=== PATIENT | female | born 1960 | race Caucasian/White ===

== ENCOUNTER 2023-07-18 16:02 | Outpatient (AMB) | payer OTHER, SELFPAY ==
--- NOTE | 2023-07-18 16:11 | MHC.OFFWIV ---
Intake Vital Signs 07/18/23 16:12 Height 5 ft 2 in Weight 109 lb BMI 19.9 BP 130/70 Blood Pressure Location Rt brachial Position Sitting Pulse 98 Pulse Source Pulse Oximeter Temp 99.5 F Temp Source Oral Pulse Oximetry (%) 93 Oxygen Delivery Method Room Air Intake Visit Reasons: [employer] Chills, pain side of neck Intake Note: Pt is here today c/o chills and pain Lt side of nexk pain since last night Allergies No Known Allergies Allergy (Verified 07/18/23 16:13) HPI HPI Comments History of Present Illness Details 63-year-old female presents today complaining of fever shaking chills sore throat left ear pain and left-sided neck pain which is anterior cervical lymphadenopathy. She denies shortness of breath cough congestion or chest pain. Had very difficult night sleeping due to myalgias Review of Systems Const All systems reviewed & are unremarkable except as noted in HPI and below Physical Exam Vital Signs: Last Vital Signs Temp 99.5 F 07/18/23 16:12 Pulse 98 07/18/23 16:12 BP 130/70 07/18/23 16:12 Pulse Ox 93 07/18/23 16:12 Oxygen Delivery Method Room Air 07/18/23 16:12 BMI result Body Mass Index 19.9 Const General: ill appearing HEENT Head: Yes normal to inspection, Yes normocephalic and Yes atraumatic Ears: hearing grossly normal bilaterally, external ears normal and TM's normal bilaterally General nose exam: Normal external nose present Face and sinus: Yes normal facial exam Throat: Yes posterior oropharynx abnormal (Posterior pharynx erythemic), Yes uvular edema and Yes other Eyes Conjunctivae: conjunctival abnormal (Injection bilaterally) Resp Auscultation: clear to auscultation bilaterally Cardio Rate: regular rate Rhythm: regular rhythm Heart sounds: S1 normal heart sound present and S2 normal heart sound present Results AMB Rapid Strep AMB Rapid Strep Negative Last Edit by Marti Cote CMA on 07/18/23 16:33 Results Reviewed Results Reviewed: Laboratory Last Values Strep Scn [facility] Negative 07/18/23 16:26 rapid strep negative Assessment & Plan Assessment & Plan (1) Flu-like symptoms: Code(s): R68.89 - Other general symptoms and signs Plan start Tamiflu. Will call with viral swab results tomorrow. If neck pain 9ncreaes - go to ED Orders: Orders SARS-CoV2/FLU/RSV 07/18/23 R50.9 - Fever, unspecified AMB Rapid Strep Screen 07/18/23 Z13.9 - Encounter for screening, unspecified Medications: New oseltamivir (Tamiflu) 75 mg PO BID 10 caps 0RF 5 days Coding Level of Care Code Est Pt Level 3 (12286) Diagnoses Flu-like symptoms R68.89
[2023-07-18 16:12] VITALS: BP 130/70; PULSE 98; TEMP 37.5; O2SAT 93; BMI 19.9
== END 2023-07-18 17:19 | disposition home or self-care (01) ==
PROVIDERS: PCP Internal Medicine; Visit Provider Physician Assistant Medical
DX: J02.9 Acute pharyngitis, unspecified (principal)
CPT/HCPCS: 87880; 99213

== ENCOUNTER 2023-07-18 16:05 | Outpatient (REF) | payer OTHER, SELFPAY ==
[2023-07-19 13:14] LABS: Influenza A PCR NEGATIVE (Negative); Influenza B PCR NEGATIVE (Negative); Resp Syncy Virus RNA Qual PCR NEGATIVE (Negative); SARS COV2 PCR INHOUSE NEGATIVE (Negative)
== END 2023-07-18 16:06 | disposition home or self-care (01) ==
LOC: HO.LNP 16:05
PROVIDERS: Visit Provider Physician Assistant Medical
DX: Z11.52 Encounter for screening for COVID-19 (principal); R50.9 Fever, unspecified
CPT/HCPCS: 0241U

== ENCOUNTER 2023-07-18 16:26 | Outpatient (REF) | payer OTHER, SELFPAY | END 2023-07-18 16:27 | disposition home or self-care (01) | LOC: HO.LAB 16:26 | PROVIDERS: Visit Provider Physician Assistant Medical | DX: Z13.89 Encounter for screening for other disorder (principal) ==